=== PATIENT | male | born 1970 | race Caucasian/White ===

== ENCOUNTER 2016-09-22 17:28 | Emergency (ER) | payer BC | END 2016-09-22 18:32 | disposition home or self-care (01) | LOC: D.ER 17:28 | DX: S16.1XXA Strain of muscle, fascia and tendon at neck level, initial encounter (principal); V43.52XA Car driver injured in collision with other type car in traffic accident, initial encounter; Y93.89 Activity, other specified; Y92.410 Unspecified street and highway as the place of occurrence of the external cause; F17.200 Nicotine dependence, unspecified, uncomplicated ==